=== PATIENT | female | born 1945 | race Caucasian/White ===

== ENCOUNTER → 2023-12-10 09:01 | Outpatient (REF) | payer MEDICARE, OTHER, SELFPAY ==
[2023-12-10 10:30] LABS: ALT (SGPT) 23 U/L (0-35); AST (SGOT) 31 U/L (14-36); Albumin 4.1 g/dl (3.5-5.0); Alkaline Phosphatase 70 U/L (38-126); Blood Urea Nitrogen 16 mg/dl (7-17); Calcium 9.2 mg/dl (8.4-10.2); Carbon Dioxide 28 mmol/L (22-30); Chloride 104 mmol/L (98-107); Glucose 99 mg/dl (70-99); HDL Cholesterol 48 mg/dl; LDL Cholesterol, Calculated 125 mg/dl; Potassium 4.5 mmol/L (3.5-5.1); Sodium 136 mmol/L (135-145); Total Bilirubin 0.5 mg/dl (0.2-1.3); Total Cholesterol 202 mg/dl (50-199); Total Protein 6.6 g/dl (6.3-8.2); Triglyceride 149 mg/dl (10-149); Very Low Density Lipoprotein 29 mg/dl (0-30); eGFR > 60.00
== END ==
LOC: REG 09:01
PROVIDERS: ATTENDING PHYSICIAN Nurse Practitioner Adult Health
DX: Z00.00 Encounter for general adult medical examination without abnormal findings (principal); E78.2 Mixed hyperlipidemia
CPT/HCPCS: 36415; 80053; 80061

== ENCOUNTER → 2023-12-24 10:59 | Outpatient (REF) | payer MEDICARE, OTHER, SELFPAY | LOC: WDC 10:59 | PROVIDERS: ATTENDING PHYSICIAN Nurse Practitioner Adult Health | DX: Z12.31 Encounter for screening mammogram for malignant neoplasm of breast (principal) | CPT/HCPCS: 77063; 77067 ==

== ENCOUNTER 2024-02-06 16:19 | Emergency (ER) | payer MEDICARE, OTHER, SELFPAY ==
[2024-02-06] VITALS (9 sets, daily range): BP systolic 122–156; BP diastolic 50–81; BMI 24.3
[2024-02-06 16:59] LABS: % Basophils 0.3 % (0-2); % Eosinophils 1.3 % (0-6); % Immature Granulocytes 0.2 % (0-0.5); % Lymphocytes 35.9 % (20.5-51.1); % Monocytes 7.4 % (1.7-9.3); % Neutrophils 54.9 % (42.2-75.2); Absolute Eosinophils 0.1 10^3/uL (0-0.7); Absolute Lymphocytes 3.3 10^3/uL (1.2-3.4); Absolute Monocytes 0.7 10^3/uL (0.1-0.6); Hematocrit 37.2 % (37.0-47.0); Hemoglobin 12.9 g/dL (12.0-16.0); Mean Corp Hgb Conc. 34.7 g/dL (33.0-37.0); Mean Corpuscular Hgb 31.1 pg (27.0-31.0); Mean Corpuscular Volume 89.6 fL (81.0-99.0); Mean Platelet Volume 9.6 fL (7.4-10.4); Nucleated Red Blood Cells % 0 %; Platelet Count 230 10^3/uL (130-400); Red Blood Cell Count 4.15 10^6/uL (4.20-5.40); White Blood Cell Count 9.1 10^3/uL (4.8-10.8)
--- NOTE | 2024-02-06 17:25 | ED.GENMED ---
History of Present Illness
<Ankita Casillas PA-C - Last Filed: 02/06/24 21:11>
General
Chief Complaint: Breathing Problem
Source: patient
Exam Limitations: none
Time Seen by Provider: 02/06/24 17:23
Nursing documentation reviewed up to this point in time: agreed with
History of Present Illness
History of Present Illness:
78-year-old female with a past medical history of hyperlipidemia, anxiety, depression, skin cancer presenting emergency department today with concerns of right-sided facial swelling and sensation of her throat closing. Patient states that she has a
history of multiple allergies. Patient was at home today when she ate a carrot as part of her lunch and about 10 minutes after ingestion, patient noted that her the right side of her face started to swell up and she had itchy feeling in her left
eye as well. Patient also states that it became difficult to breathe and she felt like her throat was closing. Patient called her neighbor to help her inject her and EpiPen injection. Patient states that after this, she started to feel better.
Patient called EMS and was given 50 mg of Benadryl and route and given some normal saline as well. Patient at this point denies any shortness of breath, any trouble swallowing, any chest pain. Patient feels like her swelling is gone down. Patient
does have a raspiness to her voice now but states that she feels like this is because her mouth is dry. Patient follows with Dr. Barrera in [place] he states did recent allergy testing on her and states that she was allergic to trees apparently
tested negative for carrots. Patient requesting new squeak rattle and leak repairer to follow-up with.
Past History
<Ankita Casillas PA-C - Last Filed: 02/06/24 21:11>
Past History
ED Past Medical History: Other (Hiatal hernia, hyperlipidemia, anxiety, depression)
Social History
Tobacco: Non-smoker
Personal:
Review of Systems
<Ankita Casillas PA-C - Last Filed: 02/06/24 21:11>
Review of Systems
All Other Systems: ROS reviewed and negative except as documented in HPI and ROS
Phy Exam
<Ankita Casillas PA-C - Last Filed: 02/06/24 21:11>
Physical Exam
Physical Exam:
General: Patient is well appearing and in no acute distress; non-toxic
Skin: Warm and dry, no rashes or lesions
Head: Normocephalic, atraumatic. Right-sided facial swelling with mild urticaria
Eyes: Sclera non-icteric. EOMs intact. PERRLA. Right upper palpebral swelling.
Mouth: No tongue swelling, dentition intact, uvula midline
Cardiac: Regular rate and rhythm, no murmurs
Pulm: Normal respiratory effort, no wheezes, rales, rhonchi. No stridor, however patient does have a noticeable hoarseness to her voice.
Abdomen: No abdominal tenderness to palpation
Neuro: CN II-XII intact, no focal neurologic deficits.
Psychiatric: Appropriate mood and affect.
Scores
<LYDIA Guevara Last Filed: 02/06/24 21:11>
Heart Failure Risk
Heart Failure Risk Score: Not Applicable
Course
<LYDIA Guevara Last Filed: 02/06/24 21:11>
Orders/Labs/Results
Orders:
Orders
02/06/24 16:52
CBC/With Diff [Complete Blood Count/With Diff] Urgent
02/06/24 17:33
EKG [Electrocardiogram (*1)] Urgent
Reason for Study: Bradycardia / Tachycardia
EKG- Treatment ONCE
02/06/24 17:49
Racepinephrine [Vaponefrin Nebs] 0.5 ml INH R NOW STA
02/06/24 18:14
Dexamethasone Sod Phosphate [Decadron] 10 mg IV NOW STA
02/06/24 18:20
COVID-19 Antigen Urgent
Source: Nasal Swab
Comprehensive Metabolic Panel Urgent
02/06/24 18:33
Famotidine [Pepcid] 20 mg IV NOW STA
02/06/24 22:00
Famotidine [Pepcid] 20 mg IV HS
Abnormal Lab Results
02/06/24 02/06/24
16:52 18:20
RBC 4.15 L 10^6/uL
(4.20-5.40)
MCH 31.1 H pg
(27.0-31.0)
Absolute Monos (auto) 0.7 H 10^3/uL
(0.1-0.6)
BUN 18 H mg/dl
(7-17)
Glucose 124 H mg/dl
(70-99)
02/06/24 16:52
02/06/24 18:20
Vital Signs
Initial and Last Documented VS:
Initial Vital Signs
Temp Pulse Resp BP Pulse Ox
97.4 F 100 12 156/51 98
02/06/24 16:32 02/06/24 16:32 02/06/24 16:32 02/06/24 16:32 02/06/24 16:32
Last Documented Vital Signs
Temp Pulse Resp BP Pulse Ox
97.4 F 74 12 126/56 96
02/06/24 16:32 02/06/24 18:00 02/06/24 18:00 02/06/24 18:30 02/06/24 18:00
Lisalt;Tarun Strickland DO - Last Filed: 02/06/24 17:49>
Orders/Labs/Results
Orders:
Orders
02/06/24 16:52
CBC/With Diff [Complete Blood Count/With Diff] Urgent
07/03/24 17:33
EKG [Electrocardiogram (*1)] Urgent
Reason for Study: Bradycardia / Tachycardia
EKG- Treatment ONCE
02/06/24 17:49
Racepinephrine [Vaponefrin Nebs] 0.5 ml INH R NOW STA
02/06/24 18:14
Dexamethasone Sod Phosphate [Decadron] 10 mg IV NOW STA
02/06/24 18:20
COVID-19 Antigen Urgent
Source: Nasal Swab
Comprehensive Metabolic Panel Urgent
02/06/24 18:33
Famotidine [Pepcid] 20 mg IV NOW STA
02/06/24 22:00
Famotidine [Pepcid] 20 mg IV HS
Abnormal Lab Results
02/06/24 02/06/24
16:52 18:20
RBC 4.15 L 10^6/uL
(4.20-5.40)
MCH 31.1 H pg
(27.0-31.0)
Absolute Monos (auto) 0.7 H 10^3/uL
(0.1-0.6)
BUN 18 H mg/dl
(7-17)
Glucose 124 H mg/dl
(70-99)
02/06/24 16:52
02/06/24 18:20
Vital Signs
Initial and Last Documented VS:
Initial Vital Signs
Temp Pulse Resp BP Pulse Ox
97.4 F 100 12 156/51 98
02/06/24 16:32 02/06/24 16:32 02/06/24 16:32 02/06/24 16:32 02/06/24 16:32
Last Documented Vital Signs
Temp Pulse Resp BP Pulse Ox
97.4 F 74 12 126/56 96
02/06/24 16:32 02/06/24 18:00 02/06/24 18:00 02/06/24 18:30 02/06/24 18:00
<Ankita Casillas PA-C - Last Filed: 02/06/24 21:11>
MDM/Problems Addressed
Differential Diagnosis Includes:
ddx include anaphylaxis, angioedema, allergic reaction, cellulitis, erysipelas, contact dermatitis
MDM/Problems Addressed:
Allergic reaction:
78-year-old female with a past medical history of hyperlipidemia, anxiety, depression, skin cancer presenting emergency department today with concerns of right-sided facial swelling and sensation of her throat closing. Patient states that this
occurred after eating a carrot. Patient states that she was told multiple years ago that she is allergic to carrots but she had recent allergy testing done which said she was negative for allergy to carrots so she decided to try it today but had a
reaction. Patient took her EpiPen had Benadryl and route. Here in the emergency department, her symptoms did improve. Because of patient's hoarseness in her voice, patient was given racemic epinephrine which patient feels improved her symptoms.
Patient was reevaluated few times and demonstrated improvement patient states that she feels well stable for discharge. We discussed return precautions, I gave her a new referral for squeak rattle and leak repairer and gave her a refill on her epinephrine, will start
her on a short prednisone burst. Patient stable for discharge. Reviewed this case with my attending Dr. Strickland
Chronic conditions affecting care:
hyperlipidemia, anxiety, depression, skin cancer, allergies
<Ankita Casillas PA-C - Last Filed: 02/06/24 21:11>
*Pulse Oximetry
Patient hypoxic: no
*EKG
Interpreted by ED Provider?: Yes
EKG Intrepretation Date: 02/06/24
Interpretation: normal
Heart Rate: 75
Rate: normal
Rhythm: sinus
[place]: normal axis
Interval: normal interval and normal QT interval
QRS Pattern: normal QRS
Ischemia: no ischemia
*Critical Care Note
Total Time (30-74mins, 75-104mins- exclusive of procedures): Not Applicable
Data Reviewed
Review of Other/Old Records Reveals: Records (Reviewed ER physician documentation from 02/07/19)
Source: patient and records
ED Attending Note
<Ankita Casillas PA-C - Last Filed: 02/06/24 21:11>
-
Portions of this chart may have been created with voice recognition software.� Occasional wrong word or��sound alike� substitutions may have occurred due to the inherent limitations of voice recognition software.
<Tarun Strickland DO - Last Filed: 02/06/24 17:49>
ED Attending Note
Patient seen and examined by attending physician: Yes
I performed the substantive portion of visit, reviewed & personally made and approve the management plan that is documented in note by myself or ASTER.: Yes
ED Attending Note:
Seen with PA examined independently 78-year-old female multiple allergies history of carot allergy, presents with allergy immediately after eating a carrot treated with epinephrine and Benadryl some mild sore throat nonischemic EKG will try some
steroids consideration for racemic epi
Discharge Plan
Departure
Patient Disposition: Home (Routine Discharge)
Date of Disposition: 02/06/24
Time of Disposition: 18:50
Patient with high blood pressure during this ER visit?: Yes
Condition: Good
Discharge Problem:
Allergic reaction
Instructions: Allergic Reaction ED, BLOOD PRESSURE
Prescriptions:
New
epinephrine [EpiPen 2-Omer] 0.3 mg/0.3 mL auto-injector
0.3 ml IM ONCE Qty: 2 0RF
prednisone 50 mg tablet
50 mg PO DAILY 4 Days Qty: 4 0RF
No Action
aspirin [Adult Aspirin Regimen] 81 MG tablet,delayed release (DR/EC)
81 mg PO DAILY
estrogens-methyltestosterone 1 TAB tablet
1 tab PO MOWEFR
cholecalciferol (vitamin D3) [Vitamin D3] 1,000 UNIT capsule
1,000 unit PO TID
esomeprazole magnesium [Nexium] 20 mg Capsule,Delayed Release(Dr/Ec)
20 mg PO DAILY
escitalopram oxalate [Lexapro] 10 mg Tablet
10 mg PO DAILY
biotin 5,000 mcg Tablet,Disintegrating
10,000 mcg PO DAILY
Sambucus Elderberry Vitamin C 250-12.5 mg Lozenge
2 freda PO DAILY
Quercetin Complex 500-250-33 mg Capsule
1 cap PO DAILY
Referrals:
Herberth Olmstead MD [[facility]] - Call in 1-3 days for appt
UNKNOWN - PT DOES,NOT KNOW [Unknown Provider] -
Activity Restrictions/Additional Instructions:
Refills of your EpiPen's have been sent to your pharmacy.
Please return to the emergency department should you experience fevers, chills,shortness of breath, chest pain, tongue or lip swelling, or any other signs or symptoms concerning to you.
Prednisone was sent to your pharmacy. Starting tomorrow, you can take one tablet once daily for 4 days.
I attached a referral for a new squeak rattle and leak repairer.
Interventions
Interventions:
*Risk Screen - Suicide Last Done: 02/06/24 16:39
*General Assessment Last Done: 02/06/24 16:39
*Neglect/Abuse Screening Last Done: 02/06/24 16:39
ED- Fall Risk Assessment Last Done: 02/06/24 19:18
*ED COVID-19 Vaccine History Last Done: 02/06/24 16:39
*Nursing Disposition Last Done: 02/06/24 19:18
ED- Cardiac Assessment Last Done: 02/06/24 16:39
ED- Pulmonary Assessment Last Done: 02/06/24 16:39
Discharge Date and Time
Discharge Date/Time: 02/06/24 19:19
Print Language: AUSTRALIAN
[2024-02-06] MEDS: VAPONEFRIN NEBS 0.5 ML INH (18:24)
[2024-02-06] MEDS: DECADRON 10 MG IV (18:26)
[2024-02-06] MEDS: PEPCID 20 MG IV (18:38)
[2024-02-06 18:46] LABS: ALT (SGPT) 20 U/L (0-35); AST (SGOT) 29 U/L (14-36); Albumin 4.2 g/dl (3.5-5.0); Alkaline Phosphatase 55 U/L (38-126); Blood Urea Nitrogen 18 mg/dl (7-17); COVID-19 Antigen Negative (Negative); Calcium 9.2 mg/dl (8.4-10.2); Carbon Dioxide 27 mmol/L (22-30); Chloride 106 mmol/L (98-107); Estimated Creatinine Clearance 66 ml/min; Glucose 124 mg/dl (70-99); Potassium 3.9 mmol/L (3.5-5.1); Sodium 139 mmol/L (135-145); Total Bilirubin 0.5 mg/dl (0.2-1.3); Total Protein 6.6 g/dl (6.3-8.2); eGFR > 60.00
== END 2024-02-06 19:19 | disposition home or self-care (01) ==
LOC: EMR 16:19
PROVIDERS: Physician Assistant; EMERGENCY PHYSICIAN Emergency Medicine; FAMILY PHYSICIAN Nurse Practitioner Adult Health
DX: T78.1XXA Other adverse food reactions, not elsewhere classified, initial encounter (principal); X58.XXXA Exposure to other specified factors, initial encounter; E78.5 Hyperlipidemia, unspecified; F41.9 Anxiety disorder, unspecified; F32.A Depression, unspecified; R03.0 Elevated blood-pressure reading, without diagnosis of hypertension
CPT/HCPCS: 99284; 96374; 96375; 94640; 80053; 85025; 87811; 93005

== ENCOUNTER → 2024-02-12 10:29 | Outpatient (REF) | payer MEDICARE, OTHER, SELFPAY | LOC: RAD 10:29 | PROVIDERS: ATTENDING PHYSICIAN Nurse Practitioner Adult Health | DX: M85.80 Other specified disorders of bone density and structure, unspecified site (principal); Z78.0 Asymptomatic menopausal state | CPT/HCPCS: 77080 ==

== ENCOUNTER → 2024-03-31 14:28 | Outpatient (REF) | payer MEDICARE, OTHER, SELFPAY | LOC: RAD 14:28 | PROVIDERS: ATTENDING PHYSICIAN Nurse Practitioner Adult Health | DX: M79.671 Pain in right foot (principal) | CPT/HCPCS: 73630 ==

== ENCOUNTER 2024-05-26 14:06 | Emergency (ER) | payer MEDICARE, OTHER, SELFPAY ==
[2024-05-26 14:30] VITALS: BP 159/67
--- NOTE | 2024-05-26 14:31 | ED.GENMED ---
ED Provider Triage
<Ale Maxwell, TEXTILE COATING MACHINE OPERATOR - Last Filed: 05/27/24 13:21>
-
Patient seen by provider in Triage?: Seen in Triage
Attestation: A medical screening examination has been initiated by a qualified medical provider. Based on the assessment performed at this time, it has been determined that an emergent medical condition may exist and the patient has been informed
that further medical evaluation and possible additional diagnostic testing may be needed.
HPI: 78 yo female pain left armpit sudden onset an hour ago, has had frequent seconds of similar pain since. It has started radiating to left breast. Worse laying down. Very congested with seasonal allergies.
Saw GI doctor one month ago and told she has chronic Reflux
GENERAL: Alert , in no apparent distress
EYE: No visual abnormalities.
NECK: Trachea midline
ENT: No visible abnormalities.
CARDIAC: RRR no murmurs
LUNGS: No acute respiratory distress
NEUROLOGICAL: Alert and oriented
SKIN: Skin intact. No visible changes.
MUSCULOSKELETAL: Moving extremities normally
PSYCH: Normal and appropriate interaction.
This is a medical evaluation conducted in person to initiate diagnostic evaluation and provide initial therapeutics. Please see further documentation by the treating clinician.
History of Present Illness
<Ale Maxwell, TEXTILE COATING MACHINE OPERATOR - Last Filed: 05/27/24 13:21>
General
Chief Complaint: Chest Pain
Time Seen by Provider: 05/26/24 16:55
<Trinity Peterson DO - Last Filed: 05/26/24 18:30>
History of Present Illness
History of Present Illness:
78-year-old female with history of hyperlipidemia, hiatal hernia, GERD presenting to the emergency department for left-sided chest pain. Patient reports earlier this afternoon, about 4 to 5 hours prior to arrival she started to have pain in her
left chest wall. Pain was sharp in quality, worse with certain movements. She reports that she has had this pain in the past, however usually subsides. Today she was concerned because pain was persisting and more intense in quality. Denies known
cardiac issues. Denies difficulty breathing. Denies history of blood clots or recent travel, however does note that she is on exogenous estrogen, postmenopausal. Denies abdominal pain or vomiting. Reports some mild nausea. Denies fever or
cough. Reports that she has seen a reduction furnace operator in the past, however it has been over a year. Does note family history of cardiac disease. Denies additional acute medical complaints
Past History
<Ale Maxwell, TEXTILE COATING MACHINE OPERATOR - Last Filed: 05/27/24 13:21>
Past History
ED Past Medical History: Other (Hiatal hernia, hyperlipidemia, anxiety, depression)
Social History
Tobacco: Non-smoker
Personal:
Phy Exam
<Trinity Peterson DO - Last Filed: 05/26/24 18:30>
Physical Exam
Physical Exam:
General: Well-appearing, no clinical signs of dehydration, nontoxic and in no acute distress
HEENT: protecting airway
Neck: appears supple
CV: Normal heart rate, regular rhythm, no evidence of cyanosis
Resp: No accessory muscle use, no increased work of breathing, lungs clear to auscultation bilaterally
Abd: Soft and non-distended, no tenderness to palpation
Extremities: No deformities, no swelling, no erythema
Neuro: alert, no focal neurologic deficit
: deferred
Rectal: deferred
Psych: Normal affect
Skin: Intact
Scores
<Ale Maxwell, TEXTILE COATING MACHINE OPERATOR - Last Filed: 05/27/24 13:21>
Heart Score for Chest Pain Patients
Heart Score for Chest Pain Patients: 3
Heart Score Risk: 2.5% MACE over next 6 weeks
<Trinity Peterson DO - Last Filed: 05/26/24 18:30>
Heart Score for Chest Pain Patients
STEMI patient?: No
History: Slightly or Non-Suspicious
ECG: Normal
Age: >/= 65 years
Risk Factors: 1 or 2 Risk Factors
Troponin: </= Normal Limit
Heart Score for Chest Pain Patients: 3
Heart Score Risk: 2.5% MACE over next 6 weeks
Course
<Ale Maxwell TEXTILE COATING MACHINE OPERATOR - Last Filed: 05/27/24 13:21>
Orders/Labs/Results
Orders:
Orders
05/26/24 14:10
Electrocardiogram (*1) Urgent
Reason for Study: Chest Pain
EKG- Treatment ONCE
05/26/24 14:36
CR Chest - 2 Views Urgent
Comment:
Reason For Exam: Left axilla and breast pains
05/26/24 14:40
Complete Blood Count/With Diff Urgent
Comprehensive Metabolic Panel Urgent
Troponin I Urgent
05/26/24 17:23
D-Dimer Urgent
Troponin I Urgent
Abnormal Lab Results
05/26/24
14:40
MCH 31.5 H pg
(27.0-31.0)
Glucose 131 H mg/dl
(70-99)
05/26/24 14:40
05/26/24 14:40
Vital Signs
Initial and Last Documented VS:
Initial Vital Signs
Temp Pulse Resp BP Pulse Ox
98.0 F 72 16 159/67 98
05/26/24 14:30 05/26/24 14:30 05/26/24 14:30 05/26/24 14:30 05/26/24 14:30
Last Documented Vital Signs
Temp Pulse Resp BP Pulse Ox
98.0 F 66 19 150/56 98
05/26/24 14:30 05/26/24 18:15 05/26/24 18:15 05/26/24 17:00 05/26/24 18:15
<Trinity Peterson DO - Last Filed: 05/26/24 18:30>
Orders/Labs/Results
Orders:
Orders
05/26/24 14:10
Electrocardiogram (*1) Urgent
Reason for Study: Chest Pain
EKG- Treatment ONCE
05/26/24 14:36
CR Chest - 2 Views Urgent
Comment:
Reason For Exam: Left axilla and breast pains
05/26/24 14:40
Complete Blood Count/With Diff Urgent
Comprehensive Metabolic Panel Urgent
Troponin I Urgent
05/26/24 17:23
D-Dimer Urgent
Troponin I Urgent
Abnormal Lab Results
05/26/24
14:40
MCH 31.5 H pg
(27.0-31.0)
Glucose 131 H mg/dl
(70-99)
05/26/24 14:40
05/26/24 14:40
Vital Signs
Initial and Last Documented VS:
Initial Vital Signs
Temp Pulse Resp BP Pulse Ox
98.0 F 72 16 159/67 98
05/26/24 14:30 05/26/24 14:30 05/26/24 14:30 05/26/24 14:30 05/26/24 14:30
Last Documented Vital Signs
Temp Pulse Resp BP Pulse Ox
98.0 F 66 19 150/56 98
05/26/24 14:30 05/26/24 18:15 05/26/24 18:15 05/26/24 17:00 05/26/24 18:15
<Trinity Peterson DO - Last Filed: 05/26/24 18:30>
MDM/Problems Addressed
MDM/Problems Addressed:
78-year-old female with history of hyperlipidemia, GERD, hiatal hernia presenting to the emergency department for left-sided chest pain. Vital signs on arrival are normal.
On exam, patient is very well-appearing, no acute distress or discomfort with unremarkable cardiac and pulmonary exam. EKG reviewed, without acute ischemic abnormality. Given intermittent nature of pain, current improvement of symptoms, lower
suspicion for ACS. Patient however does have family history and cardiac risk factors. For this reason, laboratory analysis sent including troponin. Labs were sent prior to my assessment, due to medical screening exam by ASTER. Patient also sent
for chest x-ray imaging. At time of assessment, labs had resulted, negative and undetectable troponin, chest x-ray without acute cardiopulmonary disease. Again lower suspicion for ACS, low risk by heart score. Plan for second troponin. During my
assessment, patient does note that she is on estrogen pills. Cannot satisfy PERC rule. For this reason we will add D-dimer. Ultimately suspect musculoskeletal component, possible muscle spasm.
18:30 - Second troponin is undetectable and D-dimer is within normal range. At this time without concern for PE. Patient remains hemodynamically stable. Feel that she is stable for discharge, however did advise outpatient cardiac follow-up,
reports it has been a while since her last stress test and cardiac eval. Strict return precautions communicated and patient verbalized understanding
<Trinity Peterson DO - Last Filed: 05/26/24 18:30>
*EKG
Interpreted by ED Provider?: Yes
EKG Intrepretation Date: 05/26/24
EKG Intrepretation Time: 18:26
Interpretation: normal
Comparison EKG: no changes (02/06/24)
Heart Rate: 84
Rate: normal
Rhythm: sinus
[place]: normal axis
Interval: normal interval
QRS Pattern: normal QRS
Ischemia: no ischemia
*Critical Care Note
Total Time (30-74mins, 75-104mins- exclusive of procedures): Not Applicable
ED Attending Note
<Ale Maxwell TEXTILE COATING MACHINE OPERATOR - Last Filed: 05/27/24 13:21>
-
Portions of this chart may have been created with voice recognition software.� Occasional wrong word or��sound alike� substitutions may have occurred due to the inherent limitations of voice recognition software.
Discharge Plan
Departure
Patient Disposition: Home (Routine Discharge)
Date of Disposition: 05/26/24
Time of Disposition: 18:30
Patient with high blood pressure during this ER visit?: No
Condition: Good
Discharge Problem:
Acute chest wall pain
Instructions: Chest pain - Discharge instructions
Prescriptions:
No Action
aspirin [Adult Aspirin Regimen] 81 MG tablet,delayed release (DR/EC)
81 mg PO DAILY
estrogens-methyltestosterone 1 TAB tablet
1 tab PO MOWEFR
cholecalciferol (vitamin D3) [Vitamin D3] 1,000 UNIT capsule
1,000 unit PO TID
esomeprazole magnesium [Nexium] 20 mg Capsule,Delayed Release(Dr/Ec)
20 mg PO DAILY
escitalopram oxalate [Lexapro] 10 mg Tablet
10 mg PO DAILY
biotin 5,000 mcg Tablet,Disintegrating
10,000 mcg PO DAILY
Sambucus Elderberry Vitamin C 250-12.5 mg Lozenge
2 freda PO DAILY
Quercetin Complex 500-250-33 mg Capsule
1 cap PO DAILY
epinephrine [EpiPen 2-Omer] 0.3 mg/0.3 mL auto-injector
0.3 ml IM ONCE Qty: 2 0RF
prednisone 50 mg tablet
50 mg PO DAILY 4 Days Qty: 4 0RF
Referrals:
Mikel Casey, DO [Active] -
UNKNOWN - PT DOES,NOT KNOW [Family Provider] -
Activity Restrictions/Additional Instructions:
You were seen in the emergency department for chest wall pain
You were found to have laboratory analysis, EKG, chest x-ray imaging.
Please follow-up closely with your primary care physician as well as the reduction furnace operator.
Return to the emergency department for any worsening of your symptoms, or any development of chest pain, difficulty breathing, abdominal pain with persistent vomiting and inability to tolerate food or liquid by mouth (concern for dehydration),
weakness, headache or confusion, fever greater than 100.4, or any additional symptoms that are concerning to you.
Thank you for choosing [facility].
Interventions
Interventions:
*Risk Screen - Suicide Last Done: 05/26/24 14:30
*Neglect/Abuse Screening Last Done: 05/26/24 14:30
ED- Fall Risk Assessment Last Done: 05/26/24 18:51
*Nursing Disposition Last Done: 05/26/24 18:51
ED- Cardiac Assessment Last Done: 05/26/24 16:25
Discharge Date and Time
Discharge Date/Time: 05/26/24 18:51
Print Language: INDONESIAN
[2024-05-26 14:52] LABS: % Basophils 0.1 % (0-2); % Eosinophils 1.1 % (0-6); % Immature Granulocytes 0.1 % (0-0.5); % Lymphocytes 29.8 % (20.5-51.1); % Monocytes 7.5 % (1.7-9.3); % Neutrophils 61.4 % (42.2-75.2); Absolute Eosinophils 0.1 10^3/uL (0-0.7); Absolute Lymphocytes 2.2 10^3/uL (1.2-3.4); Absolute Monocytes 0.6 10^3/uL (0.1-0.6); Absolute Neutrophils 4.5 10^3/uL (1.4-6.5); Hematocrit 39.9 % (37.0-47.0); Hemoglobin 13.5 g/dL (12.0-16.0); Mean Corp Hgb Conc. 33.8 g/dL (33.0-37.0); Mean Corpuscular Hgb 31.5 pg (27.0-31.0); Mean Corpuscular Volume 93.2 fL (81.0-99.0); Mean Platelet Volume 9.3 fL (7.4-10.4); Nucleated Red Blood Cells % 0 %; Platelet Count 256 10^3/uL (130-400); Red Blood Cell Count 4.28 10^6/uL (4.20-5.40); Red Cell Dist. Width 13.1 % (11.5-14.5); White Blood Cell Count 7.3 10^3/uL (4.8-10.8)
[2024-05-26 15:08] LABS: ALT (SGPT) 20 U/L (0-35); AST (SGOT) 28 U/L (14-36); Albumin 4.6 g/dl (3.5-5.0); Alkaline Phosphatase 55 U/L (38-126); Blood Urea Nitrogen 17 mg/dl (7-17); Calcium 9.7 mg/dl (8.4-10.2); Carbon Dioxide 26 mmol/L (22-30); Chloride 102 mmol/L (98-107); Glucose 131 mg/dl (70-99); Potassium 4.3 mmol/L (3.5-5.1); Sodium 139 mmol/L (135-145); Total Bilirubin 0.3 mg/dl (0.2-1.3); eGFR > 60.00
[2024-05-26 15:19] LABS: Troponin I < 0.012 ng/ml
[2024-05-26 16:19] VITALS: BP 138/69
[2024-05-26 16:47] VITALS: BP 153/71
[2024-05-26 17:00] VITALS: BP 150/56
[2024-05-26 17:58] LABS: Troponin I < 0.012 ng/ml
== END 2024-05-26 18:51 | disposition home or self-care (01) ==
LOC: EMR 14:06
PROVIDERS: Registered Nurse; EMERGENCY PHYSICIAN Student in an Organized Health Care Education/Training Program
DX: R07.89 Other chest pain (principal); E78.00 Pure hypercholesterolemia, unspecified; F41.8 Other specified anxiety disorders; K21.9 Gastro-esophageal reflux disease without esophagitis; Z82.49 Family history of ischemic heart disease and other diseases of the circulatory system
CPT/HCPCS: 99283; 71046; 80053; 84484; 85025; 85379; 93005

== ENCOUNTER → 2024-08-14 11:06 | Outpatient (REF) | payer MEDICARE, OTHER, SELFPAY | LOC: RAD 11:06 | PROVIDERS: ATTENDING PHYSICIAN Physician Assistant Medical | DX: Z20.828 Contact with and (suspected) exposure to other viral communicable diseases (principal); R05.3 Chronic cough | CPT/HCPCS: 71046 ==

== ENCOUNTER 2024-08-27 12:25 | Emergency (ER) | payer MEDICARE, OTHER, SELFPAY ==
[2024-08-27 12:28] VITALS: BP 147/55
--- NOTE | 2024-08-27 13:27 | ED.GENMED ---
History of Present Illness
General
Chief Complaint: Head Injury
Source: patient
Exam Limitations: none
Time Seen by Provider: 08/27/24 13:05
Nursing documentation reviewed up to this point in time: agreed with
History of Present Illness
History of Present Illness:
79-year-old female with history hyperlipidemia presenting to the emergency department for evaluation following head injury yesterday. Patient states she slipped and fell on ice yesterday around 9:30 AM falling on her bottom and then striking the
back of her head on the ice. This fall was unwitnessed however she denies any loss of conscious. Patient was able to get herself up without assistance. Patient reports persistent headache since yesterday. She has been taking Tylenol with some
improvement. Patient does also note pain in her neck after fall. Also reports very mild lower back discomfort. Patient denies any vomiting, dizziness, visual changes, numbness/tingling in extremities. Patient ambulating without difficulty since
fall. No ataxia. No pain in her extremities.
Patient is on any blood thinners.
Past History
Past History
ED Past Medical History: Other (Hiatal hernia, hyperlipidemia, anxiety, depression)
Social History
Tobacco: Non-smoker
Personal:
Review of Systems
Review of Systems
Allergies reviewed?: Yes
All Other Systems: ROS reviewed and negative except as documented in HPI and ROS
Phy Exam
Physical Exam
Physical Exam:
GENERAL: No acute distress
HEENT: atraumatic, extraocular muscles intact, visual narvaez intact, no signs of entrapment, dentition intact, no other obvious trauma
NECK: no midline tenderness, mild paracervical spinal tenderness bilaterally, no other obvious trauma
BACK: no midline tenderness, no other obvious trauma
CHEST: no tenderness, no flail segment, no subcutaneous emphysema, no other obvious trauma
LUNGS: clear to auscultation bilaterally
CARDIOVASCULAR: regular rate and rhythm
ABDOMEN: soft, non-tender, no masses, no other obvious trauma
PELVIS: stable, no obvious injury
EXTREMITIES: moving all extremities, bilateral upper and lower extremities atraumatic and nontender with full range of motion, distal pulses intact, no other obvious trauma
NEUROLOGIC: awake, alert x 3, no focal deficits. Normal finger-nose. Strength 5 out of 5 in upper and lower extremities. Sensation fully intact.
Course
Orders/Labs/Results
Orders:
Orders
08/27/24 12:[address] [CT Head W/o Iv Contrast] Urgent
Comment:
Reason For Exam: fall on ice hit back of head
08/27/24 13:26
Cervical Spine wo Contrast CT [CT Cervical Spine W/o Iv Contr] Urgent
Comment:
Reason For Exam: fall, posterior head strike, neck pain
Vital Signs
Initial and Last Documented VS:
Initial Vital Signs
Temp Pulse Resp BP Pulse Ox
98.5 F 64 18 147/55 98
08/27/24 12:28 08/27/24 12:28 08/27/24 12:28 08/27/24 12:28 08/27/24 12:28
Last Documented Vital Signs
Temp Pulse Resp BP Pulse Ox
98.5 F 61 16 144/67 98
08/27/24 12:28 08/27/24 15:42 08/27/24 15:42 08/27/24 15:42 08/27/24 15:42
MDM/Problems Addressed
Differential Diagnosis Includes:
Not limited to: Concussion, intraparenchymal hemorrhage, subdural hematoma, cervical spine fracture, cervical muscle strain, etc.
MDM/Problems Addressed:
79-year-old female with headache and mild neck discomfort after slip and fall on ice yesterday with head strike there was no loss of consciousness. Patient not on any blood thinners. No vomiting, visual changes, dizziness, ataxia. Mildly
hypertensive, otherwise stable vital signs. Physical exam as above. Patient has no noticeable head or neck trauma. No midline cervical spinal tenderness. Patient is neurologically intact without any focal deficits. She is steady gait fluid
speech. Extremities without any evidence of traumatic injuries. Fall was mechanical in nature. Head CT ordered in triage. Given mechanism and mild neck discomfort�will head on cervical spine CT. offered patient Tylenol although she prefer to wait
for results. Will closely monitor.
Update: CT reports reviewed. No acute abnormalities. Overall impression is likely concussion and cervical muscle strain. Patient overall well-appearing without focal neurologic deficits. Feel patient stable for discharge home with supportive
care, primary care follow-up. Return precautions discussed. Case discussed with attending physician.
Chronic conditions affecting care:
N/A
Acute Exacerbation and/or Progression of Chronic Illness:
N/A
*Radiology
Radiology exam reviewed: radiology read reviewed
*Pulse Oximetry
Patient hypoxic: no
*EKG
Interpreted by ED Provider?: NA
*Edge Grinder Machine Interpretation
Rate: Edge Grinder Machine- N/A
*Critical Care Note
Total Time (30-74mins, 75-104mins- exclusive of procedures): Not Applicable
ED Attending Note
-
Portions of this chart may have been created with voice recognition software.� Occasional wrong word or��sound alike� substitutions may have occurred due to the inherent limitations of voice recognition software.
Discharge Plan
Departure
Patient Disposition: Home (Routine Discharge)
Date of Disposition: 08/27/24
Time of Disposition: 15:29
Patient with high blood pressure during this ER visit?: Yes
Condition: Good
Discharge Problem:
Concussion, Cervical muscle strain
Instructions: Concussion, Adult (DC), Cervical Sprain ED, BLOOD PRESSURE
Prescriptions:
No Action
aspirin [Adult Aspirin Regimen] 81 MG tablet,delayed release (DR/EC)
81 mg PO DAILY
estrogens-methyltestosterone 1 TAB tablet
1 tab PO MOWEFR
cholecalciferol (vitamin D3) [Vitamin D3] 1,000 UNIT capsule
1,000 unit PO TID
esomeprazole magnesium [Nexium] 20 mg Capsule,Delayed Release(Dr/Ec)
20 mg PO DAILY
escitalopram oxalate [Lexapro] 10 mg Tablet
10 mg PO DAILY
biotin 5,000 mcg Tablet,Disintegrating
10,000 mcg PO DAILY
Sambucus Elderberry-Vitamin C 250-12.5 mg Lozenge
2 freda PO DAILY
Quercetin Complex 500-250-33 mg Capsule
1 cap PO DAILY
epinephrine [EpiPen 2-Omer] 0.3 mg/0.3 mL auto-injector
0.3 ml IM ONCE Qty: 2 0RF
prednisone 50 mg tablet
50 mg PO DAILY 4 Days Qty: 4 0RF
Referrals:
Maame Mock PA-C [Family Provider] - Follow up in 2-3 days
Activity Restrictions/Additional Instructions:
Return to the emergency department with any severe headache/neck pain, vomiting, vision changes, changes in mental status, numbness/tingling in extremities, worsening current symptoms, or any other concerns
-As discussed�you likely sustained a concussion and a neck sprain. There is no evidence of neck fracture on your CT scan
-You should continue to take Tylenol as needed for pain. Get plenty of rest. Stay very well-hydrated. Limit screen time.
-Follow-up with your primary care in a few days for further evaluation/management to ensure symptoms are improving
Monitor your symptoms closely return to the emergency department with any acute worsening/new symptoms or any other concerns
Interventions
Interventions:
*Risk Screen - Suicide Last Done: 08/27/24 12:28
*General Assessment Last Done: 08/27/24 12:28
*Neglect/Abuse Screening Last Done: 08/27/24 12:28
ED- Fall Risk Assessment Last Done: 08/27/24 15:42
*ED COVID-19 Vaccine History Last Done: 08/27/24 12:28
*Nursing Disposition Last Done: 08/27/24 15:42
ED- Neurological Assessment Last Done: 08/27/24 13:08
ED-Skin Assessment Last Done: 08/27/24 13:08
Discharge Date and Time
Discharge Date/Time: 08/27/24 15:42
Print Language: CITIZEN OF [place]
[2024-08-27 15:42] VITALS: BP 144/67
== END 2024-08-27 15:42 | disposition home or self-care (01) ==
LOC: EMR 12:25
PROVIDERS: EMERGENCY PHYSICIAN Emergency Medicine; FAMILY PHYSICIAN Physician Assistant Medical
DX: S06.0XAA Concussion with loss of consciousness status unknown, initial encounter (principal); S16.1XXA Strain of muscle, fascia and tendon at neck level, initial encounter; W00.0XXA Fall on same level due to ice and snow, initial encounter; I10 Essential (primary) hypertension; E78.00 Pure hypercholesterolemia, unspecified; Z86.73 Personal history of transient ischemic attack (TIA), and cerebral infarction without residual deficits
CPT/HCPCS: 99284; 70450; 72125

== ENCOUNTER → 2024-09-30 13:15 | Outpatient (REF) | payer MEDICARE, OTHER, SELFPAY | LOC: HWRAD 13:15 | PROVIDERS: ATTENDING PHYSICIAN Physician Assistant Medical | DX: R05.1 Acute cough (principal) | CPT/HCPCS: 71046 ==

== ENCOUNTER → 2024-12-25 11:00 | Outpatient (REF) | payer MEDICARE, OTHER, SELFPAY | LOC: WDC 11:00 | PROVIDERS: ATTENDING PHYSICIAN Nurse Practitioner Adult Health | DX: Z12.31 Encounter for screening mammogram for malignant neoplasm of breast (principal) | CPT/HCPCS: 77063; 77067 ==